=== PATIENT | male | born 1960 | race Two or more races ===

== ENCOUNTER 2017-09-16 07:19 | Day surgery (SDC) | payer OTHER ==
[2017-09-16] MEDS ORDERED: MORPHINE SULFATE 2 MG/ML DISP.SYRIN. IV (07:45)
[2017-09-16] MEDS ORDERED: fentaNYL PF VIAL 100 MCG/2 ML VIAL IV (07:45)
[2017-09-16] MEDS ORDERED: LIDOCAINE 1% PF 2 ML VIAL. ID (07:45)
[2017-09-16] MEDS ORDERED: ONDANSETRON PF 4 MG/2 ML VIAL. IV (07:45)
[2017-09-16] MEDS ORDERED: PROCHLORPERAZINE 10 MG/2 ML VIAL. IV (07:45)
[2017-09-16] MEDS: IV RINGERS,LACTATED 1000ML 1,000 ML IV (07:58)
[2017-09-16] MEDS ORDERED: ceFAZolin 2GM PREMIX 2 GM/50 ML BAG IV (08:00)
[2017-09-16] MEDS ORDERED: PROPOFOL 20 ML IV (09:13)
[2017-09-16] MEDS ORDERED: DEXAMETHASONE SOD PHOS 20 MG/5 ML VIAL. (09:13)
[2017-09-16] MEDS ORDERED: ONDANSETRON PF 4 MG/2 ML VIAL. (09:13)
[2017-09-16] MEDS ORDERED: FAMOTIDINE 20 MG/2 ML VIAL (09:13)
[2017-09-16] MEDS ORDERED: LIDOCAINE 2% PF Vial for OR 5 ML VIAL. (09:13)
[2017-09-16] MEDS ORDERED: fentaNYL PF VIAL 100 MCG/2 ML VIAL ×3 (09:15→11:16)
[2017-09-16] MEDS ORDERED: MIDAZOLAM HCL/PF 2 MG/2 ML VIAL. (09:15)
[2017-09-16] MEDS: BUPIVACAINE-EPI 0.25%-1:200000 50 ML VIAL. (09:42)
[2017-09-16] MEDS ORDERED: NEOSTIGMINE METHYLSULFATE 5 MG/5 ML SYRINGE. (10:14)
[2017-09-16] MEDS ORDERED: GLYCOPYRROLATE 1 MG/5 ML VIAL. (10:14)
[2017-09-16] MEDS: fentaNYL PF VIAL 100 MCG/2 ML VIAL IV ×3 (10:39→11:19)
[2017-09-16] MEDS: oxyCODONE/APAP 5/325 1 TAB TABLET PO (11:18)
== END 2017-09-16 12:11 | disposition home or self-care (01) ==
LOC: SURG 07:19
DX: K40.90 Unilateral inguinal hernia, without obstruction or gangrene, not specified as recurrent (principal); E66.9 Obesity, unspecified; F32.9 Major depressive disorder, single episode, unspecified; F17.210 Nicotine dependence, cigarettes, uncomplicated; Z72.89 Other problems related to lifestyle; Z79.82 Long term (current) use of aspirin
CPT/HCPCS: 49650; A7015; C1781; J0690; J1100; J2001; J2250; J2405; J2704; J2710; J3010; J3490; S0028

== ENCOUNTER → 2017-12-24 | Day surgery (SDC) | payer OTHER ==
[~2017-12-24] MED LIST: ASPI81TA50 PO; IV RINGERS,LACTATED 1000ML 1,000 ML IV SCH; LEXAPRO5 MG PO; LIDOCAINE 1% PF 2 ML VIAL. ID PRN; LIDOCAINE 2% PF 2ML VIAL. ONE; MIDAZOLAM HCL/PF 2 MG/2 ML VIAL. IV PRN; OXYC-323 PO; PROPOFOL 40 ML IV ONE; TAMS0.4C97 PO; fentaNYL PF VIAL 100 MCG/2 ML VIAL IV PRN
[2017-12-24 14:23] VITALS: BP 113/82
== END | disposition home or self-care (01) ==
LOC: ENDOS 13:06
PROVIDERS: ATTEND Surgery
DX: Z12.11 Encounter for screening for malignant neoplasm of colon (principal)
CPT/HCPCS: 45378; J2001; J2704

== ENCOUNTER → 2019-12-12 | Outpatient (CLI) | payer OTHER ==
[2017-12-24 14:23] VITALS: BP 113/82
[~2019-12-12] MED LIST changes: -IV RINGERS,LACTATED 1000ML 1,000 ML IV SCH; -LIDOCAINE 1% PF 2 ML VIAL. ID PRN; -LIDOCAINE 2% PF 2ML VIAL. ONE; -MIDAZOLAM HCL/PF 2 MG/2 ML VIAL. IV PRN; -OXYC-323 PO; +OXYC1TAB15 PO; -PROPOFOL 40 ML IV ONE; -fentaNYL PF VIAL 100 MCG/2 ML VIAL IV PRN
--- NOTE | 2019-12-12 16:15 | KCIC ---
ANKLE LEFT 3V, FOOT LEFT 3V 12/12/2019 12:00 AM INDICATION: Left ankle, foot pain and swelling with bruising. Fall one week ago. COMPARISON: None available. TECHNIQUE: 3 views of the left ankle and 3 views of the left foot are provided. FINDINGS/ IMPRESSION: 1. Tibial plafond and talar dome are intact. No acute fracture or dislocation of the ankle. No significant soft tissue swelling. Calcaneus and talus appear intact. 2. There are obliquely oriented fractures involving the neck of the second and third metatarsals with mild displacement. There is comminution of the fracture involving the neck of the third metatarsal. No intra-articular extension. Regional soft tissue swelling is present. No subcutaneous gas or osseous erosion. No radiopaque foreign density is identified. No disruption of the Lisfranc complex. Electronically signed by: Che Colvin MD (12/12/2019 4:12 PM) [id number]
== END | disposition home or self-care (01) ==
LOC: KCIC 14:18
PROVIDERS: ATTEND Family Medicine
DX: S92.332A Displaced fracture of third metatarsal bone, left foot, initial encounter for closed fracture (principal); X58.XXXA Exposure to other specified factors, initial encounter; Y93.89 Activity, other specified; Y92.89 Other specified places as the place of occurrence of the external cause; Y99.8 Other external cause status
CPT/HCPCS: 73610; 73630